=== PATIENT | female | born 1965 | race Caucasian/White ===

== ENCOUNTER 2020-08-03 10:17 | Outpatient (REF) | payer OTHER, SELFPAY | END 2020-08-03 10:18 | disposition home or self-care (01) | LOC: HO.LAB 10:17 | PROVIDERS: Visit Provider Internal Medicine | DX: Z20.828 Contact with and (suspected) exposure to other viral communicable diseases (principal) | CPT/HCPCS: 87635 ==

== ENCOUNTER 2020-08-12 12:11 | Outpatient (REF) | payer OTHER, SELFPAY | END 2020-08-12 12:12 | disposition home or self-care (01) | LOC: HO.LAB 12:11 | PROVIDERS: Visit Provider Internal Medicine | DX: Z20.828 Contact with and (suspected) exposure to other viral communicable diseases (principal) | CPT/HCPCS: 87635 ==

== ENCOUNTER 2025-09-26 12:20 | Outpatient (AMB) | payer OTHER, MEDICAID, SELFPAY ==
--- NOTE | 2025-09-26 12:34 | A.PHYSOV_ITS ---
Intake Visit Reasons: Bilateral knee injections Intake Note: Patient is a 60 year old female here today for bilateral knee injections. 3 months the last injection lasted Office Procedures AMB Knee Injection AMB Knee Injection Procedure Details: Bilateral Knee injection: The risks, benefits and complications of the left knee injection were discussed with the patient including but not limited to increased serum glucose, infection, nerve pain, fat atrophy, pigment augmentation, bleeding and pain. All questions were answered to the patient's satisfaction. Verbal consent was obtained. The patient was eager to proceed. Using aseptic technique with Betadine, ethyl chloride was then used to desensitize the skin. Using a 22-gauge needle 40 mg of Kenalog and 3 mL 2% lidocaine were injected into the knee joint. A Band-Aid was applied. Patient tolerated the procedure well without immediate complication. Postinjection instructions were given. The procedure was repeated on the right. Knee Injection - : Bilateral All charges added?: Procedure code (CPT) selection complete Office Meds Kenalog 40 mg/mL suspension for injection Performing Provider: PRIYANKA Griffiths Performing Location: [facility] Administered by: PRIYANKA Griffiths on 09/26/25 15:47 Dose Route Admin Location Dispensed Lot Number Expiration Date [facility] [employer] 40 mg intra-articular 1 mL [address]-7 [employer] Total Dispensed Waste 1 mL 0 % lidocaine (PF) 20 mg/mL (2 %) injection solution Performing Provider: PRIYANKA Griffiths Performing Location: [facility] Administered by: PRIYANKA Griffiths on 09/26/25 15:47 Dose Route Admin Location Dispensed Lot Number Expiration Date [facility] [employer] 60 mg intra-articular 5 mL 02665-306-87 [facility] Total Dispensed Waste 5 mL 40 % Assessment & Plan Assessment & Plan (1) Bilateral primary osteoarthritis of knee: Code(s): M17.0 - Bilateral primary osteoarthritis of knee Category: Medical Plan Ms. Dunn is a 60-year-old female seen in evaluation today for bilateral knee osteoarthritis. Patient did receive flushing and itchiness to her face post knee injection last time. She did take Benadryl without any issue. She denies any symptoms of anaphylaxis. I did inform the patient we could do 1 injection at a time. Patient declined she would like to pursue both injections today. Patient will continue to take Benadryl as needed. If she develops any signs or symptoms of anaphylaxis she will contact 911. Currently there is no sign that this will occur. We discussed the benefits of proper nutrition and exercise to maintain a healthy body weight to improve longevity and function. We also discussed the benefits of proper lifting techniques, core strengthening and proper posture. Thank you for allowing me to participate in the care of your patient. Orders: Orders AMB Knee Injection Today M17.0 - Bilateral primary osteoarthritis of knee Coding Level of Care Code Procedure Only Diagnoses Bilateral primary osteoarthritis of knee M17.0 CPT Codes AMB Knee Injection - Hip/Bursa Injection - 77118: Bilateral ([id number])
--- OUTSIDE RECORDS SUMMARY | 2025-09-26 17:54 | XMS_ITS ---
Author Name [facility] Organization Unknown Care Team Organization Name Specialty Phone Email Start Date End Da te [facility] Eddie Griffin Primary [facility] 12/21/2022 [facility] MAVERICK Primary Care 08/23/2022 06/03/2024
--- OUTSIDE RECORDS SUMMARY | 2025-09-26 17:54 | XMS_ITS | Clinical Summary ---
Author Organization [facility] [address] [facility] l[address] Address [address] [place] [address] Phone Care Team Providers Care Refueling Rampman Name Role Phone Briana Porter MD Primary Care Provider [phone] Allergies Active Allergy Reactions Criticality Noted Date Comments Aspirin Swelling 01/16/2008 Other Runny nose 03/16/2022 Seasonal Allergies Penicillin G Potassium Swelling 11/15/2005 Penicillin Penicillins 02/25/2025 Medications blood glucose control high,low (FreeStyle Control) solution Follow the instruction on calibration of the device Active diclofenac (VOLTAREN) 1 % topical gel Apply 2 g topically 4 times daily as needed (pain). Active FREESTYLE LANCETS MISC USE TO TEST ONCE DAILY Active blood sugar diagnostic (FreeStyle Lite Strips) test strip 1 Strip by In Vitro route 4 times daily. Active blood-glucose meter kit Monitor blood glucose daily before breakfast Active ibuprofen (ADVIL,MOTRIN) 600 mg tabletIndication s:Bilateral primary osteoarthritis of knee Take 1 tablet (600 mg total) by mouth every 6 (six) hours if needed for mild pain. for pain 90 tablet Active loratadine (CLARITIN) 10 mg tabletIndication s:Acute bacterial sinusitis Take 1 tablet (10 mg total) by mouth 1 (one) time each day. 30 each 5 025 Active gabapentin (NEURONTIN) 300 mg capsule Take 1 capsule (300 mg total) by mouth 3 (three) times a day. 30 each 1 025 Active cyclobenzaprine (FLEXERIL) 10 mg tablet TAKE 1 TABLET BY MOUTH TWICE A DAY NEEDED FOR MUSCLE SPASM 30 tablet 025 Active metFORMIN XR (GLUCOPHAGE-XR) 500 mg 24 hr tablet TAKE 1 TABLET BY MOUTH EVERY MORNING AFTER BREAKFAST AND EVERY NIGHT AFTER DINNER 180 tablet 1 025 Active rosuvastatin (CRESTOR) 40 mg tablet TAKE 1 TABLET BY MOUTH EVERY DAY 90 tablet 1 Active glipiZIDE (GLUCOTROL XL) 5 mg 24 hr tablet Take 1 tablet (5 mg total) by mouth 1 (one) time each day. 90 tablet 1 025 Active Ozempic 0.25 mg or 0.5 mg (2 mg/3 mL) injection penIndications:C ontrolled type 2 diabetes mellitus without complication, without long-term current use of insulin ([facility] V24, [facility] V28) INJECT 0.25 MG SUBCUTANEOUSLY EVERY 7 DAYS 3 mL 1 025 Active Ozempic 0.25 mg or 0.5 mg (2 mg/3 mL) injection penIndications:C ontrolled type 2 diabetes mellitus without complication, without long-term current use of insulin ([facility] V24, [facility] V28) INJECT 0.25 MG SUBCUTANEOUSLY EVERY 7 DAYS 3 mL 1 025 2024 Discontinued rosuvastatin (CRESTOR) 40 mg tablet TAKE 1 TABLET BY MOUTH 1 TIME EACH DAY. 90 tablet 025 2024 Discontinued glipiZIDE (GLUCOTROL XL) 5 mg 24 hr tablet Take 1 tablet (5 mg total) by mouth 1 (one) time each day. 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 True positive or allegic reaction 2017 - was referred to [facility] clinic 2022 - Allergic rhinitis 06/03/2007 Encounters Date Type Department Care Team Description 07/01/2025 9:45 AM EDT Office Visit Adult Medicine [address] [phone] Briana Porter MD Controlled type 2 diabetes mellitus without complication, without long-term current use of insulin ([facility] V24, [facility] V28) (Primary Dx); Hypercholesteremia; Murmur; Obesity (BMI 30-39.9) from Last 3 Months Immunizations Immunization Administration Dates Next Due COVID-19 (Moderna/Spikevax) 12yo and older 07/22 Influenza Quadravalent, MDCK , 0.5ml, preservative free (Flucelvax) 6mo and older 07/06/2022 Influenza trivalent, 0.5mL, preservative free (Fluarix; FluLaval; Fluzone) ages 6mo and older (Afluria) 3 years and older 08/29/2013,08/28/2008 Influenza trivalent, with pr eservative (Fluzone; Afluria) 6mo and older 08/29/2013,08/28/2008 Moderna SARS-CoV-2 COVID-19, mRNA, LNP-S, preservative free 07/22/2023 PPD Test 10/22/2007 Pneumococcal polysaccharide 23 valent (Pneumovax 23) 2yo and older 05/02/2018 Tdap Tetanus diptheria acell ular pertussis (Boostrix; Adacel) 7yo and older 06/14/2024,12/26/2012 Surgical History Surgery Date Site/Laterality Comments HYSTERECTOMY approx 2002 PROCEDURE: HISTORICAL VAGINAL HYSTERECTOMY W/O BSO; COMMENT: bleeding, details not furnished. 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 True positive or allegic reaction Osteoarthritis of knee 02/22/2008 DX:Osteoa rthritis of knee Type II or unspecified type diabetes mellitus without mention of complication, not stated as uncontrolled 12/04/2008 DX:Type II or unspecified ty pe diabetes mellitus without mention of complication, not stated as uncontrolled; COMMENT: not on any meds.Hba1c before gastric sleeve was 7 but later it improved to 6 without any medications. Unspecified disorder of lipo id metabolism 12/04/2008 DX:Unspecified disorder of l ipoid metabolism Family History Medical History Relation Name Comments Breast cancer Aunt mother side Diabetes Father hypertension, h yperlipidemia Arthritis Mother hx THR Diabetes Mother hyperlipidemia, hypertension Relation Name Status Comments Aunt Alive Father Mother Social History Tobacco Use Types Packs/Day Years Used Date Smoking Tobacco: Former Cigarettes 0 Q uit: 10/16/2022 Smokeless Tobacco: Never Tobacco Cessation:Counseling Given: Not Answered Alcohol Use Standard Drinks/Week Comments No 0 (1 standard drink = 0.6 oz pur e alcohol) Comments No Sex and Gender Information Value Date Recorded Sex Assigned at Not on file Legal Sex Female 5:30 PM EST Gender Identity Not on file Sexual Orientation Not on file Obstetrics History Para Term AB IAB SAB Ectopic Multiple Livin g Live Births 1 1 1 1 Date Outcome GA Total Labor Labor/2nd/3rd Weight Sex Type Anes PTL Alicia A1 A5 Name Clin Term Last Filed Vital Signs Vital Sign Reading Time Taken Comments Blood Pressure 132/84 07/01/2025 9:46 AM EDT Pulse 77 07/01/2025 9:23 AM EDT Temperature 36.2 C (97.1 F) 07/01/2025 9:23 AM EDT Respiratory Rate - - Oxygen Saturation 97% 05/27/2025 1:26 PM EDT Inhaled Oxygen Concentration - - Weight 83.2 kg (183 lb 6.4 oz) 07/01/2025 9:23 A M EDT Height 162.6 cm (5' 4 ) 07/01/2025 9:23 AM EDT Body Mass Index 31.48 07/01/2025 9:23 AM EDT Plan of Treatment Upcoming Encounters Date Type Department Care Team (Late st Contact Info) Description 11/14/2025 2:00 PM EST Appointment Bone Density - [place] [address] [place] [address] 12/30/2025 9:45 AM EDT Office Visit Adult Medicine - [place] [address] [place] [address] Briana Porter MD [address] [place] [address] Health Maintenance Due Date Last Done Comments Diabetes: Annual Retina Eye Exam 1975 Zoster Vaccines (1 of 2) 2015 Medicare Annual Wellness Visit 09/24/2022 Social Influencers of Health Screening 09/24/2022 Depression Screening 10/16/2024 06/14/2024 COVID-19 Vaccine ( season) 2025 07/22/2023, 07/22/2023, 03/06/2021, Additional history exists Diabetes: Blood Sugar Control Test (HGBA1C) 12/29/2025 07/01/2025, 11/20/2024, 06/14/2024, Additional history exists Diabetes: Annual Foot Exam 07/01/202607/01, 02/25/2025, 12/22/2023 Diabetes: Annual GFR (Glomerular Filtration Rate) 07/01/2026 07/01/2025, 11/20/2024, 06/14/2024, Additional history exists Diabetes: Annual Urine Albumin-Creatinine Ratio (uACR) 07/02/2026 07/02/2025, 06/14/2024 Breast Cancer Screening 05/27/2027 05/27/2025, 12/15 Cholesterol Screening (Lipid Panel) 07/01/2030 07/01/2025, 06/14/2024, 06/14/2024 Colorectal Cancer Screening: Colonoscopy 02/09/2033 02/09/2023 DTaP,Tdap,and Td Vaccines (3 - Td or Tdap) 06/14/2034 06/14/2024, 12/26/2012 RSV Immunization Adult Patients (1 - 1-dose 75+ series) 2040 Pneumococcal Vaccine: 50+ Years Discontinued 05/02/2018 Influenza Vaccine Discontinued 07/06/2022, , 08/29/2013, Additional history exists HIV Screening Completed 03/03/2025 Hepatitis C Screening Completed 03/03/2025, 018 HIB Vaccines Aged Out No longer eligi ble based on patient's age to complete this topic HPV Vaccines Aged Out No longer eligi ble based on patient's age to complete this topic Hepatitis A Vaccines Aged Out No long er eligible based on patient's age to complete this topic Hepatitis B Vaccines Aged Out No long er eligible based on patient's age to complete this topic IPV Vaccines Aged Out No longer eligi ble based on patient's age to complete this topic MMR Vaccines Aged Out No longer eligi ble based on patient's age to complete this topic Meningococcal ACWY Vaccine Aged Out N o longer eligible based on patient's age to complete this topic Meningococcal B Vaccine Aged Out No l onger eligible based on patient's age to complete this topic RSV Immunization Patients Under 20 months Aged Out No longer eligible based on patient's age to complete this topic Varicella Vaccines Aged Out No longer eligible based on patient's age to complete this topic Procedures Procedure Name Priority Date/Time Associated Diagnosis Comments MICROALBUMIN CREATININE URINE RATIO Routine 07/02/2025 9:07 AM EDT Controlled type 2 diabetes mellitus without complication, without long-term current use of insulin ([facility] V24, [facility] V28) LIPID PANEL WITH REFLEX TO DIRECT LDL Routine 07/01/2025 9:57 AM EDT Controlled type 2 diabetes mellitus without complication, without long-term current use of insulin ([facility] V24, [facility] V28) HEMOGLOBIN A1C Routine 07/01/2025 9:57 AM EDT Controlled type 2 diabetes mellitus without complication, without long-term current use of insulin ([facility] V24, [facility] V28) COMPREHENSIVE METABOLIC PANEL Routine 07/01/2025 9:57 AM EDT Controlled type 2 diabetes mellitus without complication, without long-term current use of insulin ([facility] V24, [facility] V28) MG MAMMO DIGITAL SCREENING W AMAURY BILAT Routine 05/27/2025 11:05 AM EDT Screening mammogram for breast cancer HEPATITIS C ANTIBODY Routine 03/03/2025 9:32 AM EDT Encounter for screening for viral disease HIV 1, 2 ANTIBODY, P24 ANTIGEN WITH REFLEX TO DIFFERENTIATION Routine 03/03/2025 9:32 AM EDT Encounter for screening for viral disease DEPRESSION SCREENING Routine 06/14/2024 DIABETES FOOT EXAM Routine 12/22/2023 COLONOSCOPY Routine 02/09/2023 from Last 3 Months or Most Recently Relevant to Health Maintenance Results * Microalbumin creatinine urine ratio (07/02/2025 9:07 AM EDT) Creatinine, Urine 152.0 mg/dL LAB CHEMISTRY METHOD 07/02/2025 1:41 PM EDT [facility] Microalb, Ur 17.1 0.0 - 29.0 mg/L LAB CHEMISTRY METHOD 07/02/2025 1:41 PM EDT [facility] Microalb/Creat Ratio 11 <30 mg/g creat LAB CHEMISTRY METHOD 07/02/2025 1:41 PM EDT [facility] Urine Urine specimen obtained by clean catch procedure / Unknown Non-blood Collection / Unknown 07/02/2025 9:07 AM EDT 07/02/2025 9:07 AM EDT us C Harshad Porter MD LAB URINE ORDERABLES Final Res ult [facility] [address] [place] [address], * (ABNORMAL) Lipid panel with reflex to direct LDL (07/01/2025 9:57 AM EDT) Cholesterol 291(H) 0 - 200 mg/dL LAB CHEMISTRY METHOD 07/01/2025 12:13 PM EDT [facility] Triglycerides 245(H) 0 - 150 mg/dL LAB CHEMISTRY METHOD 07/01/2025 12:13 PM EDT [facility] HDL 47 >=40 mg/dL LAB CHEMISTRY METHOD 07/01/2025 12:13 PM EDT [facility] LDL Calculated 195(H) 0 - 100 mg/dL LAB CHEMISTRY METHOD 07/01/2025 12:13 PM EDT [facility] Comment:Estimated LDL Calcul ated using equation: Total cholesterol - HDL cholesterol - (Triglycerides/5) VLDL Cholesterol Benjamin 49 mg/dL LAB CHEMISTRY METHOD 07/01/2025 12:13 PM T [facility] Non HDL Chol. (LDL+VLDL) 244(H) <145 mg/dL LAB CHEMISTRY METHOD 07/01/2025 12:13 PM T [facility] Chol/HDL Ratio 6.2(H) 0.0 - 4.4 LAB CHEMISTRY METHOD 07/01/2025 12:13 PM [facility] Blood Venous blood specimen / Unknown Venipuncture / Unknown 07/01/2025 9:57 AM EDT 07/01/2025 9:58 AM EDT C Harshad Porter MD LAB BLOOD ORDERABLES Final Res ult [facility] [address] [place] [address], * Hemoglobin A1c (07/01/2025 9:57 AM EDT) Hemoglobin A1C 6.3 <6.5 % LAB CHEMISTRY METHOD 07/01/2025 1:26 PM EDT [facility] Mean Bld Glu Estim. 134 mg/dL LAB CHEMISTRY METHOD 07/01/2025 1:26 PM [facility] Blood Venous blood specimen / Unknown Venipuncture / Unknown 07/01/2025 9:57 AM EDT 07/01/2025 9:58 AM EDT us C Harshad Porter MD LAB BLOOD ORDERABLES Final Res ult [facility] [address] [place] [address], [place] [phone] * Comprehensive metabolic panel (07/01/2025 9:57 AM EDT) Sodium 138 133 - 145 mmol/L LAB CHEMISTRY METHOD 07/01/2025 12:13 PM [facility] Potassium 4.1 3.5 - 5.5 mmol/L LAB CHEMISTRY METHOD 07/01/2025 12:13 PM [facility] Chloride 106 96 - 110 mmol/L LAB CHEMISTRY METHOD 07/01/2025 12:13 PM [facility] CO2 25 21 - 32 mmol/L LAB CHEMISTRY METHOD 07/01/2025 12:13 PM [facility] Anion Gap 7 3 - 11 LAB CHEMISTRY METHOD 07/01/2025 12:13 PM [facility] Glucose 93 70 - 100 mg/dL LAB CHEMISTRY METHOD 07/01/2025 12:13 PM [facility] BUN 16 5 - 25 mg/dL LAB CHEMISTRY METHOD 07/01/2025 12:13 PM [facility] Creatinine 0.71 0.50 - 1.10 mg/dL LAB CHEMISTRY METHOD 07/01/2025 12:13 PM [facility] eGFR 97 >=60 mL/min/1. 73m2 LAB CHEMISTRY METHOD 07/01/2025 12:13 PM [facility] Comment:Calculation based on the Chronic Kidney Disease Epidemiology Collaboration (CKD-EPI) equation refit without adjustment for race. BUN/Creatinine Ratio 22.5 LAB CHEMISTRY METHOD 07/01/2025 12:13 PM EDT [facility] Calcium 9.5 8.5 - 10.5 mg/dL LAB CHEMISTRY METHOD 07/01/2025 12:13 PM [facility] AST (SGOT) 19 10 - 42 unit/L LAB CHEMISTRY METHOD 07/01/2025 12:13 PM [facility] ALT (SGPT) 25 10 - 60 unit/L LAB CHEMISTRY METHOD 07/01/2025 12:13 PM [facility] Alkaline Phosphatase 121 42 - 121 unit/L LAB CHEMISTRY METHOD 07/01/2025 12:13 PM [facility] Total Protein 6.9 6.0 - 8.0 g/dL LAB CHEMISTRY METHOD 07/01/2025 12:13 PM [facility] Albumin 3.9 3.2 - 5.0 g/dL LAB CHEMISTRY METHOD 07/01/2025 12:13 PM [facility] Total Bilirubin 0.4 0.0 - 1.4 mg/dL LAB CHEMISTRY METHOD 07/01/2025 12:13 PM [facility] Blood Venous blood specimen / Unknown Venipuncture / Unknown 07/01/2025 9:57 AM EDT 07/01/2025 9:58 AM EDT us C Harshad Porter MD LAB BLOOD ORDERABLES Final Res ult [facility] [address] [place] [address], [place] [phone] * MG Mammo Digital Screening w Amaury bilat (05/27/2025 11:05 AM EDT) Anatomical Region Laterality Modality Breast Bilateral Mammography 05/28/2025 4:40 PM EDT Impressions 05/28/2025 4:44 PM EDT 1. No mammographic evidence of malignancy 2. Scattered fibroglandular tissue BI-RADS CATEGORY: 2 - BENIGN RECOMMENDATION: Screening bilateral mammogram is recommended in 1 year. Mammo Location: [facility], [address] [place] [address], [id number], . -------- FINAL REPORT -------- Dictated By: Richie Andrew Dictated Date: 05/28/2025 16:40 ET Assigned Physician: Richie Andrew Reviewed and Electronically Signed By: Richie Andrew Signed Date: 05/28/2025 16:44 ET Workstation ID: [id number] Transcribed By: Self Edit Transcribed Date: 05/28/2025 16:40 ET Narrative 05/28/2025 4:44 PM EDT A BILATERAL DIGITAL 3D SCREENING MAMMOGRAPHY HISTORY: Routine screening. Family history of breast cancer in aunt COMPARISON: Mammogram from 12/15/2020 Technique: Bilateral full field digital mammography (3D) was performed using standard CC and MLO projections CAD was used to evaluate this mammogram. FINDINGS: Right: No suspicious masses, groups of microcalcification or areas of architectural distortion identified. Stable typically benign parenchymal asymmetries. Left: No suspicious masses, groups of microcalcification or areas of architectural distortion identified. Stable typically benign parenchymal asymmetries. Medial breast biopsy marker. BREAST DENSITY: B - There are scattered areas of fibroglandular density. Procedure Note Richie Andrew MD - 05/28/2025 A BILATERAL DIGITAL 3D SCREENING MAMMOGRAPHY HISTORY: Routine screening. Family history of breast cancer in aunt COMPARISON: Mammogram from 12/15/2020 Technique: Bilateral full field digital mammography (3D) was performedusing standard CC and MLO projections CAD was used to evaluate this mammogram. FINDINGS: Right: No suspicious masses, groups of microcalcification or areas ofarchitectural distortion identified. Stable typically benign parenchymalasymmetries. Left: No suspicious masses, groups of microcalcification or areas ofarchitectural distortion identified. Stable typically benign parenchymalasymmetries. Medial breast biopsy marker. BREAST DENSITY: B - There are scattered areas of fibroglandular density. IMPRESSION: 1. No mammographic evidence of malignancy 2. Scattered fibroglandular tissue BI-RADS CATEGORY: 2 - BENIGN RECOMMENDATION: Screening bilateral mammogram is recommended in 1 year. Mammo Location: [facility], [address] [place] [address], [id number], . -------- FINAL REPORT -------- Dictated By: Richie Andrew Dictated Date: 05/28/2025 16:40 ET Assigned Physician: Richie Andrew Reviewed and Electronically Signed By: Richie Andrew Signed Date: 05/28/2025 16:44 ET Workstation ID: [id number] Transcribed By: Self Edit Transcribed Date: 05/28/2025 16:40 ET Simona MATHEW IMG BI PROCEDURES Final Re sult * Hepatitis C antibody (03/03/2025 9:32 AM EDT) Hepatitis C Antibody Negative Negative LAB CHEMISTRY METHOD 03/03/2025 1:37 PM EDT [facility] Blood Venous blood specimen / Unknown Venipuncture / Unknown 03/03/2025 9:32 AM EDT 03/03/2025 9:35 AM EDT Donna Jiménez [facility] BLOOD ORDERABLES Final Re sult [facility] [address] [place] [address], [place] [phone] * HIV 1,2 antibody, p24 antigen with reflex to differentiation (03/03/2025 9:32 AM EDT) HIV Combo AB/AG Negative Negative LAB CHEMISTRY METHOD 03/03/2025 1:37 PM EDT [facility] Blood Venous blood specimen / Unknown Venipuncture / Unknown 03/03/2025 9:32 AM EDT 03/03/2025 9:35 AM EDT Narrative [facility] - 03/03/2025 1:37 PM EDT This assay is a 4th generation assay allowing for earlier detection of HIV infection by detecting the presence of the HIV-1 p24 antigen as well as the traditional antibodies to HIV type 1 (including group O) and type 2. Use of a 4th generation assay is the current CDC recommendation for HIV screening. Donna Jiménez [facility] BLOOD ORDERABLES Final Re sult [facility] [address] [place] [address], [place] [phone] * Depression Screening (06/14/2024) [facility] Depression Screening abstracted [facility] Provider HEALTH MAINTENANCE Final Result * Diabetes Foot Exam (12/22/2023) [facility] Diabetes: Annual Foot Exam abstracted [facility] Provider HEALTH MAINTENANCE Final Result * Colonoscopy (02/09/2023) [facility] Colonoscopy normal, abstracted Anatomical Region Laterality Modality Other [facility] Provider HEALTH MAINTENANCE Final Result from Last 3 Months or Most Recently Relevant to Health Maintenance Additional Health Concerns Infection Onset Date Last Indicated Salmonella 05/29/2025 05/29/2025 Insurance [place] [employer] MEDICARE Care Teams Refueling Rampman Relationship Specialty Start Date End Date Briana Porter MD [address] [place] [id number] PCP - General Internal Medicine 06/11/18
== END 2025-09-26 13:07 | disposition home or self-care (01) ==
LOC: HO.HPHYS 12:20
PROVIDERS: Visit Provider Physician Assistant
DX: M17.0 Bilateral primary osteoarthritis of knee (principal)
CPT/HCPCS: 20610

== ENCOUNTER → 2025-09-26 12:20 | Outpatient (BNVA) | payer MEDICARE, MEDICAID, SELFPAY | PROVIDERS: Visit Provider Physician Assistant | DX: M17.0 Bilateral primary osteoarthritis of knee (principal) | CPT/HCPCS: 20610; J2003; J3301 ==